=== PATIENT | male | born 1995 ===

== ENCOUNTER → 2018-10-03 | Outpatient (CLI) | payer OTHER | LOC: MHCPAIN 09:08 | DX: G89.29 Other chronic pain (principal); M47.817 Spondylosis without myelopathy or radiculopathy, lumbosacral region; M53.3 Sacrococcygeal disorders, not elsewhere classified | CPT/HCPCS: G0463 ==

== ENCOUNTER → 2018-10-10 | Outpatient (CLI) | payer OTHER | LOC: MHCPAIN 11:42 | DX: M47.817 Spondylosis without myelopathy or radiculopathy, lumbosacral region (principal); M54.16 Radiculopathy, lumbar region | CPT/HCPCS: J1040; Q9967 ==

== ENCOUNTER → 2019-12-05 | Outpatient (CLI) | payer OTHER | LOC: MHCPAIN 07:57 | DX: M53.3 Sacrococcygeal disorders, not elsewhere classified (principal); M51.87 Other intervertebral disc disorders, lumbosacral region; G89.29 Other chronic pain | CPT/HCPCS: G0463 ==

== ENCOUNTER → 2020-02-15 | Outpatient (CLI) | payer OTHER | LOC: MHCPAIN 13:21 | DX: M47.817 Spondylosis without myelopathy or radiculopathy, lumbosacral region (principal); M54.5 Low back pain; M53.3 Sacrococcygeal disorders, not elsewhere classified; G89.29 Other chronic pain | CPT/HCPCS: G0463 ==

== ENCOUNTER → 2020-02-21 | Outpatient (CLI) | payer OTHER | LOC: MHCPAIN 12:43 | DX: M47.817 Spondylosis without myelopathy or radiculopathy, lumbosacral region (principal); M54.5 Low back pain; M53.3 Sacrococcygeal disorders, not elsewhere classified; G89.29 Other chronic pain | CPT/HCPCS: G0463 ==